=== PATIENT | female | born 1970 | race Caucasian/White ===

== ENCOUNTER 2019-01-29 16:29 | Emergency (ER) | payer MEDICAID, OTHER ==
[~2019-01-29] VITALS: Ht 157.5 cm; Wt 92.5 kg
[~2019-01-29 16:29] MED LIST: IBUPROFEN600 MG ORAL; KEFLEX500 MG ORAL; NKM; NORCO 5-325 TA1 EAC1 ORAL
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
[2019-01-29 16:48] VITALS: BP 119/78
[2019-01-29 17:19] LABS: APPEARANCE,URINE CLEAR; BILIRUBIN, URINE NEGATIVE (NEGATIVE); GLUCOSE, URINE (UA) NEGATIVE (NEGATIVE); KETONES,URINE NEGATIVE (NEGATIVE); LEUKOCYTE ESTERASE ,URINE 2+ (NEGATIVE); NITRITE,URINE NEGATIVE (NEGATIVE); PH,URINE 5 (4.5-8.0); PROTEIN,URINE NEGATIVE (NEGATIVE); UROBILINOGEN,URINE NORMAL MG/DL (0.0-1.0)
[2019-01-29 17:21] LABS: COLOR,URINE YELLOW
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
[2019-01-29] MEDS ORDERED: ROBAXIN-750750 MG PO (17:44)
[2019-01-29] MEDS ORDERED: BACTRIM DS TAB1 EAC1 ORAL (17:44)
--- NOTE | 2019-01-29 18:01 | NUR ---
ER DISCHARGE NOTE: Patient is cleared to be discharged per ERMD, pt is aox4, on room air, with stable vital signs. pt was given dc and prescription instructions, pt was able to verbalize understanding, pt id band removed. pt is able to ambulate with steady gait. pt took all belongings. Pt reported decrease in pain /10
[2019-01-29 18:02] VITALS: BP 119/78
== END 2019-01-29 18:01 | disposition home or self-care (01) ==
LOC: EMR 16:54
DX: M54.2 Cervicalgia (principal); M25.512 Pain in left shoulder; M25.511 Pain in right shoulder; N39.0 Urinary tract infection, site not specified; Z88.0 Allergy status to penicillin
CPT/HCPCS: 81003; 81025; 99283

== ENCOUNTER 2019-04-21 17:42 | Emergency (ER) | payer OTHER ==
[~2019-04-21] VITALS: Ht 157.5 cm; Wt 85.3 kg
[~2019-04-21 17:42] MED LIST changes: +BACTRIM DS TAB1 EAC1 ORAL; +ROBAXIN-750750 MG PO
[2019-04-21 18:15] VITALS: BP 110/79
--- NOTE | 2019-04-21 18:33 | NUR ---
ED Nurse Note: Patient brought to ER due to rectal pain and minimal rectal bleeding by a family member. Breathing even and unlabored. Alert and oriented x 4, verbally responsive. Ambulatory. Patient has history of hemorrhoids.
--- NOTE | 2019-04-21 18:46 | Emergency Room Report ---
History of Present Illness General Chief Complaint: Pain Source: Patient Present Illness HPI 48-year-old female with no significant past medical history and currently on no blood thinners here complaining of 1 day of minimal rectal bleeding and pain. Patient denies having history of hemorrhoids or straining with constipation. Denies heavy lifting, and having an nonambulatory lifestyle. Scant amount of bleeding is noted perianal with an external nonthrombosed hemorrhoid. Denies abdominal pain, diarrhea, nausea vomiting, fever and chills. Patient is rating her pain 3 out of 10 upon laying down her buttocks. Has not taken medication for her symptoms. Denies chest pain, shortness of breath, palpitation, no other associated symptoms. Allergies: Coded Allergies: PENICILLINS (Unverified Allergy, Unknown, 05/20/15) Patient History Past Medical History: see triage record Past Surgical History: unable to obtain Pertinent Family History: none Now: No Immunizations: UTD Reviewed Nursing Documentation: PMH: Agreed; PSxH: Agreed Nursing Documentation-PMH Past Medical History: No History, Except For Review of Systems All Other Systems: negative except mentioned in HPI Physical Exam Vital Signs Date Time Temp Pulse Resp B/P (MAP) Pulse Ox O2 Delivery O2 Flow Rate FiO2 04/21/19 17:55 99.0 82 20 116/82 (93) 96 Room Air Sp02 EP Interpretation: reviewed, normal General Appearance: normal inspection, well appearing, no apparent distress, alert, GCS 15 Head: normocephalic, atraumatic Eyes: bilateral eye normal inspection, bilateral eye PERRL ENT: normal ENT inspection, hearing grossly normal, normal pharynx Neck: normal inspection, full range of motion, supple Respiratory: normal inspection, chest non-tender, lungs clear, no rhonchi, no wheezing Cardiovascular #1: normal inspection, normal peripheral pulses, regular rate, rhythm, no murmur Gastrointestinal: normal inspection, soft, no mass Rectal: normal rectal tone, hemorrhoids - Nonthrombosed Genitourinary: no CVA tenderness Musculoskeletal: normal inspection, back normal, digits/nails normal Neurologic: normal inspection, alert, oriented x3, SLR negative Psychiatric: normal inspection, judgement/insight normal, memory normal Skin: no rash Lymphatic: normal inspection Medical Decision Making PA Attestation All diagnoses and treatment plans were reviewed and discussed with my supervising physician Dr. Oneill Diagnostic Impression: Primary Impression: Bleeding external hemorrhoids ER Course 48-year-old female with no significant past medical history and currently on no blood thinners here complaining of 1 day of minimal rectal bleeding and pain. Patient denies having history of hemorrhoids or straining with constipation. Denies heavy lifting, and having an nonambulatory lifestyle. Scant amount of bleeding is noted perianal with an external nonthrombosed hemorrhoid. Denies abdominal pain, diarrhea, nausea vomiting, fever and chills. Patient is rating her pain 3 out of 10 upon laying down her buttocks. Has not taken medication for her symptoms. Denies chest pain, shortness of breath, palpitation, no other associated symptoms. Ddx considered but are not limited to: External hemorrhoids nonbleeding, external hemorrhoids, thrombosed hemorrhoid, perianal abscess Vital signs: are WNL, pt. is afebrile H&PE are most consistent with: External bleeding hemorrhoid ORDERS: Anusol, prednisone, Tylenol, Colace ED INTERVENTIONS: None required at this time. DISCHARGE: At this time pt. is stable for d/c to home. Will provide printed patient care instructions, and any necessary prescriptions. Care plan and follow up instructions have been discussed with the patient prior to discharge. Patient stable and can be discharged to follow-up with primary care provider as well as ancient art curator I gave her a list of potential specialist to see however I advised her if she starts having gross amount of rectal bleeding with worsening symptoms return to the emergency room patient agrees. Last Vital Signs Date Time Temp Pulse Resp B/P (MAP) Pulse Ox O2 Delivery O2 Flow Rate FiO2 04/21/19 18:15 98.5 87 17 110/79 100 Room Air Disposition: HOME, SELF-CARE Condition: Stable Scripts Docusate Sodium* (COLACE*) 100 Mg Capsule 100 MG ORAL TWICE A DAY, #20 CAP Prov: Elizabeth Burgos 04/21/19 Acetaminophen* (ACETAMINOPHEN EXTRA STRENGTH*) 500 Mg Tablet 1000 MG ORAL Q8HR, #30 TAB 0 Refills Prov: Elizabeth Burgos 04/21/19 Prednisone* (PREDNISONE*) 20 Mg Tablet 20 MG ORAL BID for 5 Days, #10 TAB 0 Refills Prov: Elizabeth Burgos 04/21/19 Hydrocortisone Hc 2.5% Cream (ANUSOL-HC 2.5% CREAM) Y Cr 2 GM RC TID, #28 GM Prov: Elizabeth Burgos 04/21/19 Patient Instructions: Hemorrhoids, [id number] Additional Instructions: Take medication as directed follow-up with your primary care provider and ancient art curator if gross bleeding from the rectum return to the emergency room. Elizabeth Burgos Apr 21, 2019 18:46
[2019-04-21] MEDS ORDERED: ANUSOL-HC30 GM RC (18:52)
[2019-04-21] MEDS ORDERED: ACETAMINOPHEN500 M3 ORAL (18:52)
[2019-04-21] MEDS ORDERED: COLACE100 MG ORAL (18:52)
[2019-04-21] MEDS ORDERED: PREDNISONE20 MG ORAL (18:52)
--- NOTE | 2019-04-21 19:14 | NUR ---
ED Nurse Note: Pt cleared by ER MD for discharged to home. DC instructions/prescription was given and explained to pt and verbalized understanding of teachings. All medical devices such as ID band removed. Pt is AAO x4, ambulatory accompanied by family member.
== END 2019-04-21 19:11 | disposition home or self-care (01) ==
LOC: EMR 18:44
DX: K64.4 Residual hemorrhoidal skin tags (principal); Z88.0 Allergy status to penicillin
CPT/HCPCS: 99282

== ENCOUNTER 2019-05-03 01:49 | Emergency (ER) | payer OTHER ==
[~2019-05-03] VITALS: Ht 157.5 cm; Wt 84.8 kg
[~2019-05-03 01:49] MED LIST changes: +ACETAMINOPHEN500 M3 ORAL; +ANUSOL-HC30 GM RC; +COLACE100 MG ORAL; +PREDNISONE20 MG ORAL
--- NOTE | 2019-05-03 02:06 | NUR ---
ED Nurse Note: walk-in patient presents with complaints of lower back pain and gas.
[2019-05-03 02:07] VITALS: BP 119/87
[2019-05-03] MEDS ORDERED: Ketorolac 30mg Inj IV ONE (02:15)
--- NOTE | 2019-05-03 02:16 | Emergency Room Report ---
History of Present Illness General Chief Complaint: Abdominal Pain Source: Patient, Medical Record Present Illness HPI Is a 49-year-old female with no past medical history. She presents with chief complaint abdominal pain. Onset for 1 day. Sharp and cramping pain. [place] gassy. [place] nauseous but no vomiting. Decreased bowel movement. No fever chills denies any trauma. Pain is diffuse in nature crampy in nature. 8 out of 10. No relief with Tylenol. Allergies: Coded Allergies: PENICILLINS (Unverified Allergy, Unknown, 05/20/15) Patient History Past Medical History: see triage record, old chart reviewed Past Surgical History: other Pertinent Family History: none Social History: Reports: smoking Now: No Immunizations: other Reviewed Nursing Documentation: PMH: Agreed; PSxH: Agreed Review of Systems Eye: Denies: eye pain, blurred vision ENT: Denies: ear pain, nose congestion, throat swelling Respiratory: Denies: cough, shortness of breath Cardiovascular: Denies: chest pain, palpitations Gastrointestinal: Reports: abdominal pain, nausea; Denies: diarrhea, vomiting Musculoskeletal: Denies: back pain, joint pain Skin: Denies: rash Neurological: Denies: headache, numbness Endocrine: Denies: increased thirst, increased urine Hematologic/Lymphatic: Denies: easy bruising All Other Systems: negative except mentioned in HPI Physical Exam Vital Signs Date Time Temp Pulse Resp B/P (MAP) Pulse Ox O2 Delivery O2 Flow Rate FiO2 05/03/19 01:52 98.8 80 18 119/87 (98) 98 Room Air Vitals normal Sp02 EP Interpretation: reviewed, normal General Appearance: well appearing, no apparent distress, alert Head: normocephalic, atraumatic Eyes: bilateral eye PERRL, bilateral eye EOMI ENT: hearing grossly normal, normal pharynx Neck: full range of motion, supple, no meningismus Respiratory: chest non-tender, lungs clear, normal breath sounds Cardiovascular #1: regular rate, rhythm, no murmur Gastrointestinal: normal bowel sounds, no mass, no organomegaly, no bruit, non- distended, abnormal bowel sounds - Tinkling bowel sounds, tenderness - diffuse Musculoskeletal: back normal, gait/station normal, normal range of motion Psychiatric: mood/affect normal Medical Decision Making Diagnostic Impression: Primary Impression: Abdominal pain Qualified Codes: R10.84 - Generalized abdominal pain Additional Impression: Constipation Qualified Codes: K59.00 - Constipation, unspecified ER Course . Patient presents with abdominal pain. No acute abdomen. CT scan negative. She does complain of being constipated. Will discharge home. Stop the prednisone. CT/MRI/US Diagnostic Results CT/MRI/US Diagnostic Results : Imaging Test Ordered: CT abdomen pelvis Impression Read by radiologist. Negative. Last Vital Signs Date Time Temp Pulse Resp B/P (MAP) Pulse Ox O2 Delivery O2 Flow Rate FiO2 05/03/19 02:07 80 18 Room Air 05/03/19 02:07 98.8 119/87 98 Status: improved Disposition: HOME, SELF-CARE Condition: Stable Scripts Lactulose (LACTULOSE*) 20 Gm/30 Ml Solution 30 ML ORAL BID, #240 ML 0 Refills Prov: Gokul Mensah MD 05/03/19 Patient Instructions: Abdominal Pain, Adult Additional Instructions: Follow-up with in 7 days. Return if symptoms worsen. Gokul Mensah MD May 03, 2019 02:16
[2019-05-03 02:45] LABS: BASOPHILS % (AUTO) 0.6 % (0.0-2.0); EOSINOPHILS % (AUTO) 0.2 % (0.0-3.0); HEMATOCRIT 47.5 % (37.0-47.0); HEMOGLOBIN 16.5 G/DL (12.0-16.0); MEAN CORPUSCULAR VOLUME 94 FL (80-99); MONOCYTES % (AUTO) 2.2 % (1.0-10.0); NEUTROPHILS % (AUTO) 78.9 % (45.0-75.0); PLATELET COUNT 253 K/UL (150-450); RED BLOOD COUNT 5.06 M/UL (4.20-5.40); RED CELL DISTRIBUTION WIDTH 11.9 % (11.6-14.8)
[2019-05-03 02:50] LABS: APPEARANCE,URINE CLEAR; BILIRUBIN, URINE NEGATIVE (NEGATIVE); COLOR,URINE PALE YELLOW; GLUCOSE, URINE (UA) NEGATIVE (NEGATIVE); KETONES,URINE 1+ (NEGATIVE); LEUKOCYTE ESTERASE ,URINE 1+ (NEGATIVE); NITRITE,URINE NEGATIVE (NEGATIVE); PH,URINE 6 (4.5-8.0); PROTEIN,URINE NEGATIVE (NEGATIVE); UROBILINOGEN,URINE NORMAL MG/DL (0.0-1.0)
[2019-05-03 02:56] LABS: ANION GAP 5 mmol/L (5-15); BLOOD UREA NITROGEN 13 mg/dL (7-18); CALCIUM 9.6 MG/DL (8.5-10.1); CARBON DIOXIDE 31 MMOL/L (21-32); CHLORIDE 105 MMOL/L (98-107); CREATININE 0.8 MG/DL (0.55-1.30); POTASSIUM 3.9 MMOL/L (3.5-5.1); SODIUM 141 MMOL/L (136-145)
[2019-05-03 02:59] LABS: ALANINE AMINOTRANSFERASE 27 U/L (12-78); ALBUMIN 3.7 G/DL (3.4-5.0); ALKALINE PHOSPHATASE 62 U/L (46-116); ASPARTATE AMINO TRANSFERASE 17 U/L (15-37); BILIRUBIN,TOTAL 0.4 MG/DL (0.2-1.0)
--- NOTE | 2019-05-03 03:22 | Diagnostic Imaging Report ---
Indication: Abdominal pain Technique: Continuous helical transaxial imaging of the abdomen and pelvis was obtained from the lung bases to the pubic symphysis. No intravenous contrast was administered. Coronal 2-D reformats were also obtained. Automatic Exposure Control was utilized. Total Dose length Product (DLP): 1025.[address] Dose Index Volume (CTDIvol): 18.6 mGy Comparison: none Findings: There is mild posterior basilar atelectasis. The study is limited by the nonadministration of contrast. There is suggestion of a 1.7 cm left parapelvic cyst and probable other parapelvic cysts in the left kidney. The appendix is normal. Bowel gas pattern is nonobstructive. There is no free fluid. Uterus noted. Bladder is unremarkable. Gallbladder is unremarkable. IMPRESSION: No acute findings appreciated. Other incidental findings as above. [facility] has communicated the preliminary results to the Emergency Department. Their findings are largely concordant with this report. The CT scanner at [facility] is accredited by the [employer] and the scans are performed using dose optimization techniques as appropriate to a performed exam including Automatic Exposure control.
[2019-05-03] MEDS ORDERED: LACTULOSE20 GM/301 ORAL (03:40)
[2019-05-03 03:48] VITALS: BP 119/87
--- NOTE | 2019-05-03 03:49 | NUR ---
ED Nurse Note: Patient cleared for discharge by ERMD. Patient verbalized understanding of discharge instructions. IV removed. Patient ambulatory with steady gait, no s/s of acute distress. Patient departed with all belongings accompanied by her significant other.
== END 2019-05-03 03:50 | disposition home or self-care (01) ==
LOC: EMR 02:15
DX: K59.00 Constipation, unspecified (principal); R10.84 Generalized abdominal pain; F17.200 Nicotine dependence, unspecified, uncomplicated; Z88.0 Allergy status to penicillin
CPT/HCPCS: 36415; 74176; 80053; 80307; 81003; 81025; 83690; 85025; 96361; 96374; 99284; J1885